=== PATIENT | male | born 1990 | race Caucasian/White ===

== ENCOUNTER 2018-01-30 01:01 | Emergency (ER) | payer OTHER ==
[~2018-01-30] VITALS: Ht 172.7 cm; Wt 55.2 kg
[2018-01-30 01:04] VITALS: BP 123/79
[2018-01-30] MEDS ORDERED: HYDROcodone/APAP 5/325 TABLET ONE (01:27)
[2018-01-30] MEDS ORDERED: HYDROcodone/APAP 5/325 TABLET PO ONE (01:30)
== END 2018-01-30 01:38 | disposition home or self-care (01) ==
LOC: ED 01:15
DX: K04.7 Periapical abscess without sinus (principal)
CPT/HCPCS: 99283

== ENCOUNTER 2019-03-16 13:50 | Emergency (ER) | payer MEDICAID, OTHER ==
[~2019-03-16] VITALS: Ht 172.7 cm; Wt 64.0 kg
[2019-03-16 15:23] VITALS: BP 114/72
[2019-03-16] MEDS ORDERED: ALBUTEROL/IPRATROPIUM 2.5MG/0.5MG, 3 ML NPPB ONE (15:30)
[2019-03-16] MEDS ORDERED: DEXAMETHASONE 4 MG TABLET PO ONE (15:30)
[2019-03-16] MEDS ORDERED: HYDROcodone/APAP 7.5-325MG/15ML UDC PO PRN (15:30)
[2019-03-16 15:33] LABS: BASOPHILS # (AUTO) 0.04 x10^3/uL (0-0.1); BASOPHILS % (AUTO) 0 % (0-1); EOSINOPHILS # (AUTO) 0.02 x10^3/uL (0-0.4); EOSINOPHILS % (AUTO) 0 % (1-7); LYMPHOCYTES % (AUTO) 9 % (22-44); MD NO; MEAN CORPUSCULAR HEMOGLOBIN 30.4 pg (27.5-34.5); MEAN CORPUSCULAR HGB CONC 33.4 g/dL (33.2-36.2); MEAN PLATELET VOLUME 7.2 fL (7.4-10.4); MONOCYTES # (AUTO) 0.82 x10^3/uL (0.2-0.8); MONOCYTES % (AUTO) 7 % (2-9); NEUTROPHILS # (AUTO) 9.35 x10^3/uL (1.8-6.8); NEUTROPHILS % (AUTO) 83 % (42-75); PLATELET COUNT 228 x10^3/uL (130-400); RED BLOOD COUNT 4.81 x10^6/uL (4.38-5.82); RED CELL DISTRIBUTION WIDTH 13.1 % (9.4-14.8)
[2019-03-16] MEDS ORDERED: HYDROcodone/APAP 7.5-325MG/15ML UDC ONE (15:34)
[2019-03-16] MEDS ORDERED: DEXAMETHASONE 4 MG TABLET ONE (15:34)
[2019-03-16] MEDS ORDERED: ALBUTEROL/IPRATROPIUM 2.5MG/0.5MG, 3 ML ONE (16:14)
== END 2019-03-16 16:33 | disposition home or self-care (01) ==
LOC: ED 16:27
DX: J20.8 Acute bronchitis due to other specified organisms (principal); J03.00 Acute streptococcal tonsillitis, unspecified; F17.210 Nicotine dependence, cigarettes, uncomplicated
CPT/HCPCS: 36415; 71046; 85025; 86308; 87081; 87880; 94640; 99284; J7620